=== PATIENT | male | born 1995 | race Caucasian/White ===

== ENCOUNTER 2017-12-12 18:46 | Emergency (ER) | payer OTHER ==
[~2017-12-12] VITALS: Ht 177.8 cm; Wt 108.0 kg
[2017-12-12 18:47] VITALS: BP 136/79; PULSE 90; RESP 14; TEMP 98.4; O2SAT 100
[2017-12-12] MEDS ORDERED: IBUPROFEN 800 MG TAB PO ONE (20:30)
--- NOTE | 2017-12-12 20:32 | PD ---
HPI Chief Complaint: Injury Time Seen by Provider: 20:26 Travel History International Travel<30 days: No Contact w/Intl Traveler<30days: No Traveled to known affect area: No History of Present Illness HPI 22-year-old [id number] white male presents to emergency department for evaluation of a work comp injury. Patient states that he was at work yesterday moving a piece of steel when he threw it on the ground and hit a rock bouncing striking his left ankle and foot. He states that he had only minimal discomfort initially area and he also states that he is unsure how he had injured his right hand but he is also had pain in his right hand into his wrist. He states that when he woke up today he had swelling, pain in his right hand and wrist as well as increasing pain in his right ankle and foot. He denies any numbness or tingling. No focal weakness. 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 Patient denies any known direct injury to the right hand. [facility] Past Medical History Medical History: Denies Significant Hx Tetanus Vaccination: < 5 Years ?: Not Past Surgical History Surgical History: No Previous Surgery Social History Alcohol Use: Yes Tobacco Use: Yes (pack every couple days ) Substance Use: No Allergies-Medications (Allergen,Severity, Reaction): Coded Allergies: blueberry (Verified Allergy, Unknown, 12/12/17) Reported Meds & Prescriptions Reported Meds & Active Scripts Active Diclofenac Sodium DR (Diclofenac Sodium) 75 Mg Tabdr 75 Mg PO BID Review of Systems General / Constitutional: No: Fever Eyes: No: Visual changes HENT: No: Headaches, Neck Stiffness, Neck Pain Cardiovascular: No: Chest Pain or Discomfort Respiratory: No: Shortness of Breath Gastrointestinal: No: Abdominal Pain Genitourinary: No: Dysuria Musculoskeletal: Positive: Arthralgias, Limited ROM, Edema, Pain, No: Weakness Skin: No Rash Neurologic: No: Weakness Psychiatric: No: Depression Endocrine: No: Polydipsia Hematologic/Lymphatic: No: Easy Bruising Physical Exam Narrative GENERAL: Well-developed, well-nourished in no apparent distress. Nontoxic appearing. HEAD: Normocephalic, atraumatic. EYES: Pupils equal round and reactive. Extraocular motions intact. No scleral icterus. No injection or drainage. ENT: Nose clear. Throat without erythema, tonsillar hypertrophy or exudate. Uvula midline. Airway patent. NECK: Trachea midline. Supple, nontender, moves head freely. No central bony tenderness or spasm. CARDIOVASCULAR: Regular rate and rhythm without murmurs, gallops, or rubs. RESPIRATORY: Clear to auscultation. Breath sounds equal bilaterally. No wheezes , rales, or rhonchi. GASTROINTESTINAL: Abdomen soft, non-tender, nondistended. No hepato-splenomegaly , or palpable masses. No guarding. EXTREMITIES: Examination of the right upper extremity reveals global tenderness in the wrist into the proximal bernice. There is mild swelling. He is able to extend and flex his fingers freely. He has intact median/ulnar/radial nerves. There is no erythema, warmth. The skin is intact. There is no pain in the elbow or shoulder. The left upper extremity is unremarkable. The right lower extremity is unremarkable. The left lower extremity reveals tenderness across the second, third, fourth toe with some mild ecchymosis. He also has some tenderness to the proximal forefoot to the medial aspect of the ankle. No pain in the medial lateral malleolus. No pain in the heel or Achilles. The skin is intact. He has good distal pulses and sensation. No pain in the knee or hip. Patient ambulates freely. BACK: Nontender without deformity. No flank tenderness. NEUROLOGICAL: Awake, alert and oriented x 3 .Cranial nerves grossly intact. Motor and sensory grossly within normal limits. Normal speech. Data Data Last Documented VS Vital Signs Date Time Temp Pulse Resp B/P (MAP) Pulse Ox O2 Delivery O2 Flow Rate FiO2 12/12/17 18:47 98.4 90 14 136/79 (98) 100 Orders Orders Ankle, Limited (Ap&Lat) (12/12/17 20:26) Foot, Complete ([id number]) (12/12/17 20:26) Hand, Complete ([id number]) (12/12/17 20:26) Ibuprofen (Motrin) (12/12/17 20:30) Naproxen (Naprosyn) (12/12/17 20:45) Ed Discharge Order (12/12/17 21:03) Ice/Cold Pack (12/12/17 21:03) Splint Or Brace Apply/Monitor (12/12/17 21:03) [facility] Medical Decision Making Medical Screen Exam Complete: Yes Emergency Medical Condition: Yes Medical Record Reviewed: Yes Interpretation(s) Right hand: Negative for acute fracture. Positive soft tissue swelling. Left ankle: Negative for acute fracture. Left foot: Negative for acute fracture. Differential Diagnosis MDM: High Differential diagnoses: Fracture, sprain, strain, dislocation, contusion, neurovascular injury Narrative Course X-ray of the right hand, left ankle and foot. Patient was given Naprosyn 500 mg by mouth. X-rays of the right hand, left ankle and foot are negative for bony injury. Patient's given Jonas wrap and ice. This is right hand sprain, left foot and ankle contusion Diagnosis Primary Impression: Sprain of right hand Qualified Codes: S63.91XA - Sprain of unspecified part of right wrist and hand , initial encounter Additional Impression: left foot and ankle contusion Patient Instructions: General Instructions Departure Forms: Tests/Procedures, Work Release Special Instructions: No work 3 days. Additional Instructions: Rest. Elevation. Jonas wrap. Ice for the next 2-3 days. Medications as directed. Follow-up will workup in the next 3 days. Return to the ER if any problems. Med/Other Pt SpecificInfo: Prescription(s) given Scripts Diclofenac Sodium DR (Diclofenac Sodium DR) 75 Mg Tabdr 75 MG PO BID, #30 TAB 0 Refills Prov: Todd Dodge MD 12/12/17 Disposition: 01 DISCHARGE HOME Condition: Stable Kelvin Sanchez Dec 12, 2017 20:32
[2017-12-12] MEDS ORDERED: NAPROXEN 500 MG TAB PO ONE (20:45)
[2017-12-12] MEDS ORDERED: DICL75TA PO (21:02)
--- NOTE | 2017-12-12 21:03 | RADRPT ---
EXAM DATE/TIME: 12/12/2017 20:43 [facility] COMPARISON: No previous studies available for comparison. INDICATIONS : Patient dropped metal on left foot at work. Complains of left foot pain. MEDICAL HISTORY : None. SURGICAL HISTORY : None. ENCOUNTER: Initial ACUITY: 2 days PAIN SCORE: 6/10 LOCATION: Left Foot FINDINGS: Three view examination of the left foot demonstrates no soft tissue swelling, dislocation, or fractur e. The tarsal bones appear intact. The interphalangeal and metatarsophalangeal joints are intact. The calcaneus is intact. Bony mineralization is normal. CONCLUSION: Unremarkable examination of the left foot. Marcial Conway Jr., MD on December 12, 2017 at 21:01 Board Certified Radiologist. This report was verified electronically.
--- NOTE | 2017-12-12 21:03 | RADRPT ---
EXAM DATE/TIME: 12/12/2017 20:41 [facility] COMPARISON: No previous studies available for comparison. INDICATIONS : Patient dropped metal on left ankle at work. Complains of left ankle pain. MEDICAL HISTORY : None. SURGICAL HISTORY : None. ENCOUNTER: Initial ACUITY: 2 days PAIN SCORE: 6/10 LOCATION: Left Ankle FINDINGS: Two view exam was performed of the left ankle. The bony structures are in normal alignment. No evid ence of fracture, dislocation, or soft tissue swelling. No radiopaque foreign bodies are seen. Bony mineralization is normal. CONCLUSION: Unremarkable limited examination of the left ankle. Marcial Conway Jr., MD on December 12, 2017 at 21:01 Board Certified Radiologist. This report was verified electronically.
--- NOTE | 2017-12-12 21:13 | RADRPT ---
EXAM DATE/TIME: 12/12/2017 20:48 [facility] COMPARISON: No previous studies available for comparison. INDICATIONS : Patient dropped metal on hand. Complains of right hand pain. MEDICAL HISTORY : None. SURGICAL HISTORY : None. ENCOUNTER: Initial ACUITY: 2 days PAIN SCORE: 5/10 LOCATION: Right Hand FINDINGS: Three view examination of the right hand demonstrates no soft tissue swelling, dislocation, or fractu re. The carpal bones appear intact. The interphalangeal and metacarpophalangeal joints are intact. Bony mineralization is normal. CONCLUSION: Unremarkable examination of the right hand. Marcial Conway Jr., MD on December 12, 2017 at 21:10 Board Certified Radiologist. This report was verified electronically.
== END 2017-12-12 21:34 | disposition home or self-care (01) ==
LOC: NEPD 18:46
DX: S63.91XA Sprain of unspecified part of right wrist and hand, initial encounter (principal); S90.02XA Contusion of left ankle, initial encounter; W22.8XXA Striking against or struck by other objects, initial encounter; Y99.0 Civilian activity done for income or pay; F17.210 Nicotine dependence, cigarettes, uncomplicated
CPT/HCPCS: 73130; 73600; 73630; 99284